=== PATIENT | male | born 1995 ===

== ENCOUNTER 2020-10-29 01:54 | Emergency (ER) | payer OTHER, SELFPAY | END 2020-10-29 02:09 | LOC: ERS 01:54 | DX: S00.81XA Abrasion of other part of head, initial encounter (principal); F17.220 Nicotine dependence, chewing tobacco, uncomplicated; V89.2XXA Person injured in unspecified motor-vehicle accident, traffic, initial encounter | CPT/HCPCS: 99284 ==